=== PATIENT | female | born 1995 | race Caucasian/White ===

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

== ENCOUNTER 2017-08-11 13:17 | Emergency (ER) | payer SELFPAY ==
[2017-08-11 14:12] VITALS: BP 120/76
--- NOTE | 2017-08-11 15:01 | UC ---
General HPI - HPI Summary HPI Summary: 21 yo female c/o Facial and chest wall lacerations. A large metal object at work fell off wall, and onto her face and chest. No loc. No vis / aud changes. No other injuries or pain c/o. No sob / cp. No neck pain, no h/a. No abd issues. Childhood tet utd. - History of Current Complaint Chief Complaint: UCLaceration Stated Complaint: WORK INJURY - SCRAPES FROM A BOX Time Seen by Provider: 08/11/17 15:01 Hx Obtained From: Patient Hx Last Menstrual Period: Berenice IUD Pain Intensity: 4 - Allergy/Home Medications Allergies/Adverse Reactions: Allergies Allergy/AdvReac Type Severity Reaction Status Date / Time amoxicillin Allergy Rash Verified 08/11/17 14:04 Home Medications: Home Medications Berenice Iud 08/11/17 [History] PMH/Surg Hx/FS Hx/Imm Hx Previously Healthy: Yes Other History Of: Negative For: HIV, Hepatitis B, Hepatitis C, Anticoagulant Therapy - Surgical History Surgical History: None - Family History Known Family History: Positive: Cardiac Disease, Hypertension, Diabetes - Social History Alcohol Use: Occasionally Substance Use Type: None Smoking Status (MU): Light Every Day Tobacco Smoker Type: Smokeless Tobacco Amount Used/How Often: 2-4 dips a day Length of Time of Smoking/Using Tobacco: Since Age 21 Household Exposure Type: Cigarettes - Immunization History Most Recent Influenza Vaccination: January 2016 Most Recent Tetanus Shot: Unknown Review of Systems Constitutional: Negative Skin: Other - see hpi ENT: Negative Respiratory: Negative Cardiovascular: Negative Gastrointestinal: Negative Genitourinary: Negative Motor: Negative Neurovascular: Negative Musculoskeletal: Negative Neurological: Negative Psychological: Negative Is Patient Immunocompromised?: No All Other Systems Reviewed And Are Negative: Yes Physical Exam Triage Information Reviewed: Yes Appearance: Well-Appearing, Well-Nourished Vital Signs: Initial Vital Signs Temp 98 F 08/11/17 14:00 Pulse 60 08/11/17 14:00 Resp 16 08/11/17 14:00 BP 120/76 08/11/17 14:00 Pulse Ox 100 08/11/17 14:00 Vital Signs Reviewed: Yes Eye Exam: Normal ENT Exam: Other ENT: Positive: Normal ENT inspection - except see "skin" Neck exam: Normal Respiratory Exam: Normal - no tachypnea, no dyspnea, rr normal Cardiovascular Exam: Normal - normal hr, non-diaphoretic Abdominal Exam: Normal - no c/o pain Musculoskeletal Exam: Normal Neurological Exam: Normal - grossly normal, including CN's 1-12 no c/o smell d/o Psychological Exam: Normal Skin Exam: Other - nondiaphoretic. Facial expressions symmetric. L forehead with 1.5 x 0.3cm x 0.2cm laceratation. No active bleeding. Under left eye ( not involving lid), there is an irreg lac approx 0.5cm length x 0.2cm Eccymosis under left eye. Tender directly over eccymosis, but non-tender bony areas elsewhere. No crepitus. No double vision. EOMI. Mid-left ant chest wall approx 11.5cm L x 0.2cm x 0.2cm. + abrasion perilac. This was dressed by RN as per orders. All wounds cleansed by RN. Course/Dx - Course Course Of Treatment: All wounds cleansed by RN. L facial forehead wound repaired via skin adhesive and steristrips. No sutures. Reviewed wound care ( and need for f/u) x all lacs / abrasions. Questions as posed answered to the best of my ability. - Differential Dx - Multi-Symptom Provider Diagnoses: Facial lac x 2 (one needing skin adhs repair). Chest wall lac (no suture, no skin adhs). Eccymosis facial Discharge - Sign-Out/Discharge Documenting (check all that apply): Discharge/Admit/Transfer - Discharge Plan Condition: Stable Disposition: HOME Prescriptions: Mupirocin 2% OINT* [Bactroban 2 % Oint*] 1 applic TOPICAL DAILY #1 tube Patient Education Materials: Laceration (DC), Skin Adhesive Care (ED), Facial Laceration (ED) Forms: *Work Release Referrals: [facility] [place] [facility] [Outside] No Primary Care Phys,NOPCP [Primary Care Provider] - Additional Instructions: Follow up with a primary care physician as soon as you are able. Follow up here in 2-3 days for recheck. Please seek medical attention for worse or new problems. Avoid direct sun exposure, indefinitely. Avoid astringents, especially while wound is still open. Glue may come off in 5-7 days. - Billing Disposition and Condition Condition: STABLE Disposition: HOME
== END 2017-08-11 16:01 | disposition home or self-care (01) ==
LOC: UCCORT 13:17
DX: S01.81XA Laceration without foreign body of other part of head, initial encounter (principal); S21.119A Laceration without foreign body of unspecified front wall of thorax without penetration into thoracic cavity, initial encounter; W26.9XXA Contact with unspecified sharp object(s), initial encounter; Y92.9 Unspecified place or not applicable; F17.220 Nicotine dependence, chewing tobacco, uncomplicated; Z88.3 Allergy status to other anti-infective agents
CPT/HCPCS: 12001; 99212; G0463

== ENCOUNTER → 2018-01-24 | Emergency (ER) | payer BC ==
[2018-01-24 08:02] VITALS: BP 130/62
--- NOTE | 2018-01-24 08:18 | UC ---
Throat Pain/Nasal Juancarlos HPI - HPI Summary HPI Summary: Patient presents to urgent care with 6 days of progressive head congestion and sore throat ear pain. Patient also with a cough productive of yellow sputum. Patient's been taking DayQuil, Nyquil, and Advil with little relief. Patient states has coughing. Works in [employer]. Patient denies fevers but states she's had chills. No nausea or vomiting. Patient states she feels tired crutches up at night. Pt with sick contact. BF not getting sick too. + tobacco use Pt's medications reviewed this visit Not - History of Current Complaint Chief Complaint: UCGeneralIllness Stated Complaint: SORE THROAT CONGESTION COUGH HEADACHE Time Seen by Provider: 01/24/18 08:10 Hx Obtained From: Patient Hx Last Menstrual Period: 01/20/18 Onset/Duration: Sudden Onset Severity: Moderate Pain Intensity: 8 Pain Scale Used: 0-10 Numeric - Allergies/Home Medications Allergies/Adverse Reactions: Allergies Allergy/AdvReac Type Severity Reaction Status Date / Time amoxicillin Allergy Rash Verified 01/24/18 07:58 PMH/Surg Hx/FS Hx/Imm Hx Previously Healthy: Yes Other History Of: Negative For: HIV, Hepatitis B, Hepatitis C, Anticoagulant Therapy - Surgical History Surgical History: None - Family History Known Family History: Positive: Cardiac Disease, Hypertension, Diabetes - Social History Occupation: Employed Full-time Lives: With Family Alcohol Use: Occasionally Substance Use Type: None Smoking Status (MU): Light Every Day Tobacco Smoker Type: Smokeless Tobacco Amount Used/How Often: 2-4 dips a day Length of Time of Smoking/Using Tobacco: Since Age 21 Household Exposure Type: Cigarettes - Immunization History Most Recent Influenza Vaccination: January 2016 Most Recent Tetanus Shot: Unknown Review of Systems Constitutional: Chills, Fatigue ENT: Sore Throat, Nasal Discharge, Sinus Congestion, Sinus Pain/Tenderness Respiratory: Cough All Other Systems Reviewed And Are Negative: Yes Physical Exam - Summary Physical Exam Summary: Vital Signs Reviewed: Yes A+Ox3, tired appearing Eyes: Conjunctiva Clear, MIGUELINA. EOM intact and full ENT: Hearing grossly normal fluid left ear, mild erythema Right Tm wnl, turbinates inflammed, mild PND, mmoist, uvula midline, no exudate, no erythema Neck: Positive: Supple Respiratory: Positive: No respiratory distress, No accessory muscle use + CTA throughout no w/r, mile intermittent cough Cardiovascular: RRR nl s1, s2 no m/r CBT <2 sec abd soft + BS nt/nd no guarding, no distension Musculoskeletal Exam: RUSSO x 4 without difficulty Strength Intact, ROM Intact Neurological: Positive: Alert, + sensation throughout Psychological: Positive: Normal Response To Family Skin: Positive: no rash, no ecchymosis Triage Information Reviewed: Yes Vital Signs: Initial Vital Signs Temp 98.1 F 01/24/18 07:49 Pulse 93 01/24/18 07:49 Resp 20 01/24/18 07:49 BP 130/62 01/24/18 07:49 Pulse Ox 99 01/24/18 07:49 Throat Pain/Nasal Course/Dx - Course Course Of Treatment: Pt presents with progressive head congestion, cough and ear pain. Pn exam pt with inflammed turbinates, tender max sinuses, pnd, and serous otitis left. flonase. zpack. hdyrate. secretion precaution. work note. motrin/apap. decongestant. Pt in agreement with plan - Differential Dx/Diagnosis Provider Diagnoses: rhinosinusitis. left serous otitis Discharge - Sign-Out/Discharge Documenting (check all that apply): Patient Departure All imaging exams completed and their final reports reviewed: No Studies - Discharge Plan Condition: Stable Disposition: HOME Prescriptions: Azithromycin TAB* [Zithromax TAB (Z-LOLY) 250 mg #6 tabs] 2 tab PO .TODAY, THEN 1 DAILY #1 loly Fluticasone NASAL SPRAY 50MCG* [Flonase NASAL SPRAY 50MCG*] 2 spray BOTH NARES DAILY #1 btl Patient Education Materials: Rhinosinusitis (ED), Serous Otitis Media (ED) Forms: *Work Release Referrals: No Primary Care Phys,NOPCP [Primary Care Provider] - Additional Instructions: - Stay well hydrated. Drink plenty of non-alcoholic, non-caffinated beverages. - Alternate ibuprofen (Advil, Motrin) 600mg and Tylenol every 3 hours for pain or fever. Take with food. Do NOT take for more than 4-5 days. - These infections are spread by secretions - do NOT share eating or drinking utensils - clean items you share with other people such as cell phones, computer mouse, TV remote, computer tablets,etc. Once you have been antibiotics for 2 days, change your toothbrush and your pillowcase. - get plenty of restful sleep - humidify the air in the room where you sleep - boil water, run a hot steam shower, vaporizer, cups of water by heat register - okay to take over the counter decongestant and cough medication - use nasal spray as prescribed - contact your doctor or return with questions or concerns - Billing Disposition and Condition Condition: STABLE Disposition: Home
== END | disposition home or self-care (01) ==
LOC: UCCORT 07:44
DX: J32.9 Chronic sinusitis, unspecified (principal); H65.92 Unspecified nonsuppurative otitis media, left ear; Z88.0 Allergy status to penicillin; F17.210 Nicotine dependence, cigarettes, uncomplicated
CPT/HCPCS: 99212; G0463

== ENCOUNTER 2018-05-02 20:11 | Emergency (ER) | payer BC ==
[2018-05-02 20:23] VITALS: BP 129/72
[2018-05-02] MEDS ORDERED: Lidocaine 1%* 5 ML VIAL INJ ONE (20:44)
[2018-05-02] MEDS ORDERED: Sulfamethox/Trimethoprim DS 800/160* TAB PO ONE (21:11)
--- NOTE | 2018-05-02 21:49 | UC ---
Skin Complaint HPI - HPI Summary HPI Summary: Pt c/o pain in bilateral skin piercings. Pt reports that she had dermal piercings placed 2 months ago. Pt c/o pain and skin "growing over" left dermal piercing. Pt is requesting that dermal piercings be removed. - History of Current Complaint Chief Complaint: UCSkin Time Seen by Provider: 05/02/18 20:44 Stated Complaint: SKIN COMPLAINT Hx Obtained From: Patient Hx Last Menstrual Period: 04/16/18 ?: No Onset/Duration: Gradual Onset, Lasting Days, Still Present Skin Exposure Onset/Duration: Days Ago Timing: Constant Onset Severity: Mild Current Severity: Moderate Pain Intensity: 0 Pain Scale Used: 0-10 Numeric Location: Discrete Character: Pain, Painful Aggravating Factor(s): Touch Alleviating Factor(s): Nothing Associated Signs & Symptoms: Positive: Tenderness Related History: Foreign Body - Allergy/Home Medications Allergies/Adverse Reactions: Allergies Allergy/AdvReac Type Severity Reaction Status Date / Time amoxicillin Allergy Rash Verified 05/02/18 20:22 PMH/Surg Hx/FS Hx/Imm Hx Previously Healthy: Yes Other History Of: Negative For: HIV, Hepatitis B, Hepatitis C, Anticoagulant Therapy - Surgical History Surgical History: None - Family History Known Family History: Positive: Cardiac Disease, Hypertension, Diabetes - Social History Occupation: Employed Full-time Lives: With Family Alcohol Use: Occasionally Substance Use Type: None Smoking Status (MU): Light Every Day Tobacco Smoker Type: Smokeless Tobacco Amount Used/How Often: 2-4 dips a day Length of Time of Smoking/Using Tobacco: Since Age 21 Have You Smoked in the Last Year: Yes - smokeless Household Exposure Type: Cigarettes - Immunization History Most Recent Influenza Vaccination: January 2016 Most Recent Tetanus Shot: Unknown Review of Systems All Other Systems Reviewed And Are Negative: Yes Constitutional: Positive: Negative Skin: Positive: Other - skin piercings, Eyes: Positive: Negative ENT: Positive: Negative Respiratory: Positive: Negative Cardiovascular: Positive: Negative Gastrointestinal: Positive: Negative Genitourinary: Positive: Negative Motor: Positive: Negative Neurovascular: Positive: Negative Musculoskeletal: Positive: Negative Neurological: Positive: Negative Psychological: Positive: Negative Is Patient Immunocompromised?: No Physical Exam Triage Information Reviewed: Yes Appearance: Well-Appearing, Other: - pt states she is anxious about having piercings removed Vital Signs: Initial Vital Signs Temp 98.4 F 05/02/18 20:20 Pulse 69 05/02/18 20:20 Resp 18 05/02/18 20:20 BP 129/72 05/02/18 20:20 Pulse Ox 100 05/02/18 20:20 Vital Signs Reviewed: Yes Eye Exam: Normal ENT Exam: Normal Neck exam: Normal Respiratory: Positive: No respiratory distress Cardiovascular Exam: Normal Musculoskeletal Exam: Normal Neurological Exam: Normal Psychological Exam: Normal Skin Exam: Other - dermal piercing, bilateral lower back. Pt left side dermal piercing, tender and skin has grown over, unable to see "jewel". Procedures - Incision and Drainage Bilateral Lower Back Site: bilateral lower back. Anesthesia: Local Instrument(s): Scalpel - dermal piercings removed. Pt tolerated well. Course/Dx - Course Course Of Treatment: 4 cc 1% lidocaine injected be tween both piercings. - Differential Diagnoses - Skin Complaint Differential Diagnoses: Foreign Body - Diagnoses Provider Diagnosis: History of body piercing, Foreign body (FB) in soft tissue Discharge - Sign-Out/Discharge Documenting (check all that apply): Patient Departure All imaging exams completed and their final reports reviewed: No Studies - Discharge Plan Condition: Stable Disposition: HOME Prescriptions: Sulfamethox/Trimethoprim DS* [Bactrim DS 800/160 TAB*] 1 tab PO Q12H #14 tab Patient Education Materials: Soft Tissue Foreign Body (ED), Acute Wound Care ( ED) Referrals: [facility] [Outside] - If Needed No Primary Care Phys,NOPCP [Primary Care Provider] - - Billing Disposition and Condition Condition: STABLE Disposition: Home - Attestation Statements Provider Attestation: I was available for consult. This patient was seen by the NAV[facility]. The patient was not presented to, seen by, or examined by me. EK
== END 2018-05-02 21:20 | disposition home or self-care (01) ==
LOC: UCCORT 20:11
DX: M79.5 Residual foreign body in soft tissue (principal); Z88.0 Allergy status to penicillin; F17.210 Nicotine dependence, cigarettes, uncomplicated
CPT/HCPCS: 10120; 99212; A9270-GY; G0463